=== PATIENT | female | born 1955 | race Caucasian/White ===

== ENCOUNTER → 2024-01-06 08:20 | Outpatient (REF) | payer MEDICARE, BC, SELFPAY | LOC: WDC 08:20 | PROVIDERS: ATTENDING PHYSICIAN Family Medicine | DX: Z12.31 Encounter for screening mammogram for malignant neoplasm of breast (principal) | CPT/HCPCS: 77063; 77067 ==

== ENCOUNTER → 2024-09-29 11:52 | Outpatient (REF) | payer MEDICARE, BC, SELFPAY ==
[2024-09-29 14:05] LABS: Hematocrit 37.4 % (37.0-47.0); Hemoglobin 12.4 g/dL (12.0-16.0); Mean Corp Hgb Conc. 33.2 g/dL (33.0-37.0); Mean Corpuscular Hgb 28.6 pg (27.0-31.0); Mean Corpuscular Volume 86.4 fL (81.0-99.0); Mean Platelet Volume 10.1 fL (7.4-10.4); Platelet Count 396 10^3/uL (130-400); Red Blood Cell Count 4.33 10^6/uL (4.20-5.40); Red Cell Dist. Width 13.3 % (11.5-14.5); White Blood Cell Count 9.7 10^3/uL (4.8-10.8)
[2024-09-29 14:16] LABS: Blood Urea Nitrogen 12 mg/dl (7-17); Calcium 9.5 mg/dl (8.4-10.2); Carbon Dioxide 32 mmol/L (22-30); Chloride 100 mmol/L (98-107); Glucose 81 mg/dl (70-99); Potassium 2.8 mmol/L (3.5-5.1); Sodium 140 mmol/L (135-145); eGFR > 60.00
== END ==
LOC: SDSPAT 11:52
PROVIDERS: ATTENDING PHYSICIAN Obstetrics & Gynecology; FAMILY PHYSICIAN Family Medicine
DX: Z01.818 Encounter for other preprocedural examination (principal)
CPT/HCPCS: 36415; 80048; 85027; 86850; 86900; 86901; 93005

== ENCOUNTER 2024-10-04 06:19 | Day surgery (SDC) | payer MEDICARE, BC, SELFPAY ==
[2024-09-29 14:07] VITALS: BMI 29.8
--- NOTE | 2024-09-30 15:10 | PTCARENOTE ---
Abnormal Potassium of 2.8 on 09/02/24. Dr. Courtney aware. He asked that the potassium be corrected prior to surgery.
[2024-10-04] VITALS (15 sets, daily range): BP systolic 115–184; BP diastolic 52–96; BMI 29.8
[2024-10-04 09:59] LABS: Glucose - Point of Care 114 mg/dl (70-99)
[2024-10-04] MEDS: Pyridium 200 MG PO (10:01)
[2024-10-04] MEDS: NORMOSOL-R/PLASMALYTE-A 1000 IV (10:02)
[2024-10-04] MEDS: HEPARIN 5000 UNITS SC (10:02)
[2024-10-04 10:52] LABS: Blood Urea Nitrogen 15 mg/dl (7-17); Calcium 9.8 mg/dl (8.4-10.2); Carbon Dioxide 25 mmol/L (22-30); Chloride 106 mmol/L (98-107); Estimated Creatinine Clearance 84 ml/min; Glucose 123 mg/dl (70-99); Potassium 4.1 mmol/L (3.5-5.1); Sodium 138 mmol/L (135-145); eGFR > 60.00
[2024-10-04 14:41] LABS: Glucose - Point of Care 165 mg/dl (70-99)
[2024-10-04] MEDS: MOTRIN 600 MG PO (17:05)
--- NOTE | 2024-10-04 18:11 | SUR.PHASEII ---
patient initial walk to bathroom - became nauseous, passed with cold cloth and alcohol noxious stimuli. voided, however post void bladder scan was greater than 350. allowed to rest, able to drink and snack, medicated with motrin for abdominal
pressure and headache. 2nd attempt to void -able to empty bladder 45cc bladder scan post void. with patient - reviewed all instructions and plan of care. Both asking appropriate questions. at discharge - patient had no surgical pain and
headache resolved.
== END 2024-10-04 17:50 | disposition home or self-care (01) ==
LOC: SDS 06:19
PROVIDERS: ATTENDING PHYSICIAN Obstetrics & Gynecology; FAMILY PHYSICIAN Family Medicine
DX: N99.3 Prolapse of vaginal vault after hysterectomy (principal); N39.3 Stress incontinence (female) (male); Y83.8 Other surgical procedures as the cause of abnormal reaction of the patient, or of later complication, without mention of misadventure at the time of the procedure
CPT/HCPCS: 57425; 57250; 57288; 80048; 82962; 86900; 86901; C1763; C1771

== ENCOUNTER 2024-12-22 06:26 | Day surgery (SDC) | payer MEDICARE, BC, SELFPAY ==
[2024-12-22 10:25] LABS: Glucose - Point of Care 100 mg/dl (70-99)
== END 2024-12-22 12:29 | disposition home or self-care (01) ==
LOC: GI 06:26
PROVIDERS: ATTENDING PHYSICIAN Internal Medicine
DX: Z12.11 Encounter for screening for malignant neoplasm of colon (principal); D12.4 Benign neoplasm of descending colon; D12.5 Benign neoplasm of sigmoid colon; K57.30 Diverticulosis of large intestine without perforation or abscess without bleeding; K64.8 Other hemorrhoids; R19.7 Diarrhea, unspecified; K29.70 Gastritis, unspecified, without bleeding; K21.9 Gastro-esophageal reflux disease without esophagitis; K22.89 Other specified disease of esophagus; K31.7 Polyp of stomach and duodenum; K31.89 Other diseases of stomach and duodenum; Z80.0 Family history of malignant neoplasm of digestive organs; Z13.810 Encounter for screening for upper gastrointestinal disorder
CPT/HCPCS: 45385; 45380; 43239; 88305; 82962; 88342

== ENCOUNTER → 2025-04-24 08:13 | Outpatient (REF) | payer MEDICARE, BC, SELFPAY | LOC: WDC 08:13 | PROVIDERS: ATTENDING PHYSICIAN Family Medicine | DX: Z12.31 Encounter for screening mammogram for malignant neoplasm of breast (principal) | CPT/HCPCS: 77063; 77067 ==